=== PATIENT | male | born 1990 ===

== ENCOUNTER → 2020-08-23 | Outpatient (REF) | payer SELFPAY | LOC: M LAB REF 14:19 | PROVIDERS: ATTEND Surgery | DX: Z20.828 Contact with and (suspected) exposure to other viral communicable diseases (principal) ==

== ENCOUNTER → 2020-08-24 | Outpatient (REF) | payer SELFPAY | LOC: M LAB REF 10:28 | PROVIDERS: ATTEND Surgery | DX: Z01.818 Encounter for other preprocedural examination (principal); K62.5 Hemorrhage of anus and rectum ==